=== PATIENT | male | born 1975 | race African-American/Black ===

== ENCOUNTER 2024-02-20 13:20 | Emergency (ER) | payer BC ==
[~2024-02-20 13:20] MED LIST: Iopamidol-370 76% 500 ML MDV (1 ML CHARGE) ONE
[2024-02-20] MEDS ORDERED: Sodium Chloride 0.9% 100 ML ONE (13:37)
[2024-02-20] MEDS ORDERED: CEFAZOLIN 2 GM VIAL ONE (13:37)
[2024-02-20] MEDS ORDERED: Boostrix 0.5 ML (Tdap) VIAL (>/=7 yrs of age) ONE (13:39)
[2024-02-20 14:26] LABS: #Basophils 0.08 10x3/uL (0.0-0.2); %Basophils 0.5 % (0.0-1.0); %Eosinophils 1.1 % (0.0-10.0); %Lymphocytes 8.1 % (21.0-51.0); %Monocytes 5.7 % (0.0-10.0); Hematocrit 32.4 % (42.0-52.0); Hemoglobin 10.4 g/dL (14.0-18.0); Mean Corpuscular HGB CONC 32.1 g/dL (32.0-36.0); Mean Corpuscular Hemoglobin 28.3 pg (27.0-31.0); Mean Platelet Volume 10.5 fL (7.4-10.4); Platelet Count 245 10x3/uL (130-400); RBC Distribution Width 12.6 % (11.5-14.5); Red Blood Cell (RBC) Count 3.68 mill/uL (4.70-6.10)
[2024-02-20 14:37] LABS: Actual Bicarbonate (HCO3v) 21.1 mEq/L (22-28); Analyzer IN Cardio ER; Base Excess -4.8 mEq/L (-2.0 to +3.0); Chloride (VBG) 102 mmol/L (98-106); Hematocrit-VBG 34 % (42.0-52.0); Hemoglobin (Hb) 11.6 g/dL (13.1-17.2); Potassium (VBG) 4.28 mmol/L (3.70-5.30); Sodium 137 mmol/L (133-146); pH (venous) 7.319 (7.32-7.43)
[2024-02-20 14:42] LABS: Prothrombin Time 13.5 sec (12.0-14.7)
[2024-02-20 14:43] LABS: ALT (SGPT) 16 U/L (8-55); AST (SGOT) 26 U/L (5-34); Albumin 3.3 g/dL (3.5-5.0); Alkaline Phosphatase 75 U/L (40-110); Anion Gap 15 mmol/L (10-20); BUN (Urea Nitrogen) 21 mg/dL (8.9-20.6); Bilirubin, Total 0.3 mg/dL (0.2-1.2); Calc. Creatinine Clearance 0 mL/min (70-130); Calcium 8.9 mg/dL (7.8-10.44); Carbon Dioxide 20 mmol/L (22-29); Chloride 104 mmol/L (98-107); Estimated GFR 52; Globulin 3.5 g/dL (2.4-3.5); Glucose 322 mg/dL (70-105); Lipase 18 U/L (8-78); Potassium 4.2 mmol/L (3.5-5.1); Protein, Total 6.8 g/dL (6.0-8.3); Sodium 135 mmol/L (136-145)
[2024-02-20 14:45] LABS: Acetaminophen Less than 10 mcg/mL (Less than 10); Alcohol Less than 10.0 mg/dL (Less than 10); Salicylate Less than 8.0 mg/dL (Less than 8.0)
[2024-02-20 14:46] LABS: PTT 22.8 sec (22.9-36.1)
[2024-02-20 14:47] LABS: Troponin I Less than 0.010 ng/mL (< 0.028)
[2024-02-20] MEDS ORDERED: Lidocaine 1% w/Epinephrine 1:100K 20 ML VIAL ONE (14:50)
[2024-02-20 17:43] LABS: Amphetamine Not Detected (NotDetected); Barbiturates Screen Not Detected (NotDetected); Benzodiazepine Screen Not Detected (NotDetected); Cocaine Metabolite Screen Not Detected (NotDetected); Methadone Not Detected (NotDetected); Methamphetamine Not Detected (NotDetected); Opiate Screen Not Detected (NotDetected); Oxycodone Screen Not Detected (NotDetected); Phencyclidine (PCP) Not Detected (NotDetected); THC/Cannabinoid Screen Not Detected (NotDetected); Tricyclic Screen Not Detected (NotDetected)
[2024-02-20 17:48] LABS: Bilirubin Negative (Negative); Blood, Urine 2+ (Negative); CAUTI Indications for Culture Alt mental st,lethar; Clarity Clear (Clear); Glucose, Urine (Dipstick) Greater than 1000 mg/dL (Negative); Ketone, Urine 20 mg/dL (Negative); Leukocyte Negative Leu/uL (Negative); Nitrite Negative (Negative); Protein, Urine (Dipstick) 200 mg/dL (Neg-Trace); Specific Gravity, Urine 1.044 (1.002-1.036); Squamous Epithelial None Seen HPF (0-3); Urobilinogen Normal mg/dL (Less than 2); WBC/HPF 0-3 HPF (0-3); pH, Urine 5.5 (5.0-9.0)
[2024-02-20 18:03] LABS: Bacteria/HPF Rare-Few HPF (None Seen); Yeast-Budding Rare HPF (None Seen)
[2024-02-20 18:04] LABS: Urine Culture Reflex No No
== END 2024-02-20 20:25 | disposition home or self-care (01) ==
LOC: ERS 13:20
DX: S01.111A Laceration without foreign body of right eyelid and periocular area, initial encounter (principal); S09.90XA Unspecified injury of head, initial encounter; S60.512A Abrasion of left hand, initial encounter; S80.212A Abrasion, left knee, initial encounter; E11.65 Type 2 diabetes mellitus with hyperglycemia; V89.2XXA Person injured in unspecified motor-vehicle accident, traffic, initial encounter; Z23 Encounter for immunization; Z55.6 Problems related to health literacy
CPT/HCPCS: 12011; 36415; 36416; 70450; 70486; 71045; 71260; 72125; 74177; 80053; 80306; 80307; 81001; 82010; 82805; 83690; 84484; 85025; 85610; 85730; 86850; 86900; 86901; 90471; 90715; 93005; 94760; 96365; 96366; G0390; Q9967